=== PATIENT | female | born 1970 | race Caucasian/White ===

== ENCOUNTER 2020-01-24 22:25 | Emergency (ER) | payer BC, SELFPAY ==
--- NOTE | ~2020-01-24 | CT_ITS ---
EXAMINATION: CT foot RT wo con DATE: 01/24/2020 23:46 INDICATION: Right foot fractures with pain and swelling post trauma. TECHNIQUE: High resolution computed tomography (CT) of the right foot and ankle was performed without intravenous contrast. Additional sagittal and coronal reconstructions were performed. Automated expo sure control and iterative reconstruction technique were employed. The dose-length product was 432.84 mGy-cm. COMPARISON: None FINDINGS: Mildly comminuted fracture at the dorsal/lateral margin of the distal articular surface of the medial cuneiform with minimal displacement of at least 3 tiny fracture fragments. Small minimally displaced fracture along the plantar rim of the proximal articular surface of the first metatarsal. Minimally displaced oblique fracture across the plantar base of the second metatarsal. Minimally displaced, mil dly comminuted oblique fracture across the plantar base of the third metatarsal. Nondisplaced transve rse extra-articular fracture at the proximal metadiaphyseal region of the fourth metatarsal. No signi ficant subluxation at the tarsal metatarsal joints. No other fractures identified. Joint spaces appea r relatively preserved. Small plantar calcaneal spur. Mild soft tissue swelling about the midfoot. No ankle joint effusion. Tendons appear unremarkable. IMPRESSION: 1. Lisfranc joint injury with non to minimally displaced fracture at the base of the first-fourth met atarsals and at the dorsal/lateral distal articular surface of the medial cuneiform. Reviewed, dictated and finalized at location A. IMPRESSION: 1. Lisfranc joint injury with non to minimally displaced fracture at the base o f the first-fourth metatarsals and at the dorsal/lateral distal articular surfa ce of the medial cuneiform.
--- NOTE | ~2020-01-24 | XR_ITS ---
EXAMINATION: XR foot RT min 3V DATE: 01/24/2020 23:19 INDICATION: Right foot pain and swelling post trauma TECHNIQUE: Dorsoplantar, two oblique and lateral views of the right foot were obtained. COMPARISON: CT dated 01/24/2020 FINDINGS: Non to minimally displaced fracture at the base of the first-fourth metatarsals. Additional small min imally displaced fractures at the dorsal aspect of the distal medial cuneiform. No evident subluxatio n across the tarsal metatarsal joints. No other fractures identified. Joint spaces appear relatively preserved. Small plantar calcaneal spur. Soft tissue swelling about the midfoot. IMPRESSION: 1. Lisfranc injury with non to minimally displaced fractures at the base of the first-fourth metatars als and at the medial cuneiform. Reviewed, dictated and finalized at location A. IMPRESSION: 1. Lisfranc injury with non to minimally displaced fractures at the base of the first-fourth metatarsals and at the medial cuneiform.
[2020-01-24 22:26] VITALS: BP 100/61; PULSE 111; RESP 20; TEMP 36.3; O2SAT 100
--- NOTE | 2020-01-24 22:41 | ECG_ITS ---
Measurements Intervals [place] Rate: 85 P: 71 MN: 124 QRS: 81 QRSD: 74 T: 62 QT: 351 QTc: 419 Interpretive Statements SINUS RHYTHM NORMAL ECG Electronically Signed On 01-25-2020 7:46:54 CDT by Sumeet Arce D.O.
[2020-01-24] MEDS: MORPHINE SULFATE 4 MG/ML INJ IV PUSH (22:55)
[2020-01-24 23:00] LABS: Basophils Absolute Auto 0.1 K/mm3 (0.0-0.1); Basophils Percent Auto 0.6 % (0.2-1.2); Eosinophils Absolute Auto 0.5 K/mm3 (0-0.3); Eosinophils Percent Auto 3.6 % (0-4.4); Hemoglobin 15.8 g/dL (12.0-15.0); Immature Granulocyte Absolute 0.05 K/mm3 (0.00-0.031); Immature Granulocyte Percent A 0.4 % (0-0.5); Lymphocytes Absolute Auto 2.74 K/mm3 (0.9-3.2); Lymphocytes Percent Auto 19.4 % (18.3-44.2); Mean Corpuscular HGB Conc 32.2 g/dl (32-36); Mean Corpuscular Hemoglobin 29.3 pg (26-34); Mean Corpuscular Volume 90.7 fl (80-100); Mean Platelet Volume 8.5 fl (7.4-10.4); Monocytes Absolute Auto 0.9 K/mm3 (0.1-0.6); Monocytes Percent Auto 6.4 % (2.6-8.5); Neutrophils Absolute Auto 9.8 K/mm3 (1.3-6.7); Neutrophils Percent Auto 69.6 % (45.5-73.1); Platelet Count Result 420 k/mm3 (150-375); Red Cell Distribution Width 13.2 % (11.5-14.5); White Blood Count 14.1 K/mm3 (4.5-10.0)
[2020-01-24 23:14] LABS: Blood Urea Nitrogen 16 mg/dL (7-17); Calcium 10.3 mg/dL (8.4-10.2); Carbon Dioxide 27 mmol/L (22-30); Chloride 100 mmol/L (98-107); Estimated Glomerular Filt Rate 48; Glucose 113 mg/dL (65-105); Potassium 4.4 mmol/L (3.4-5.0); Sodium 138 mmol/L (137-145)
--- NOTE | 2020-01-24 23:25 | ED.LOWEXIN ---
HPI - Extremity Injury (Lower) General Chief Complaint: Extremity Injury, Lower <Ameya Payne MD - Last Filed: 01/24/20 23:54> Stated Complaint: broke my foot <Ameya Payne MD - Last Filed: 01/24/20 23:54> Time Seen by Provider: 01/24/20 22:26 <Ameya Payne MD - Last Filed: 01/24/20 23:54> History of Present Illness HPI Narrative: Patient is a 49-year-old female who presents ER with right foot pain. Patient reports she got lightheaded and then passed out and hit the ground. When she woke up she had terrible pain in her right foot and has pain with flexion/extension of the foot and with any type of pressure. Patient reports when she takes her Seroquel sometimes she passes out and she thinks that is what occurred. She has no nausea/vomiting/dizziness at this time. Her head does not hurt her. There is no evidence of trauma to her head. <Ameya Payne MD - Last Filed: 01/24/20 23:54> Related Data Home Medications: Home Medications Medication Instructions Recorded Confirmed Requip 11/01/19 gabapentin 11/01/19 lithium carbonate 11/01/19 omeprazole 11/01/19 quetiapine 11/01/19 ropinirole 11/01/19 <Ameya Payne MD - Last Filed: 01/24/20 23:54> Allergies/Adverse Reactions: Allergies Allergy/AdvReac Type Severity Reaction Status Date / Time Penicillins Allergy Rash Verified 01/24/20 22:29 sulfamethoxazole Allergy Vomiting Verified 01/24/20 22:29 [From Bactrim] trimethoprim [From Bactrim] Allergy Vomiting Verified 01/24/20 22:29 <Ameya Payne MD - Last Filed: 01/24/20 23:54> Review of Systems Review of Systems: All systems reviewed & are unremarkable except as noted in HPI and below <Ameya Payne MD - Last Filed: 01/24/20 23:54> Constitutional: Constitutional: Denies chills and Denies fever(s) <Ameya Payne MD - Last Filed: 01/24/20 23:54> Gastrointestinal: Gastrointestinal: Denies nausea and Denies vomiting <Ameya Payne MD - Last Filed: 01/24/20 23:54> Musculoskeletal: Comments: Right foot pain and swelling over the dorsal aspect. <Ameya Payne MD - Last Filed: 01/24/20 23:54> Neurologic: Reports syncope, Reports numbness and Denies weakness <Ameya Payne MD - Last Filed: 01/24/20 23:54> PMFSH Past Medical History Medical History: Medical History (Updated 01/25/20 @ 00:52 by Danie Maher MD) Bipolar disorder <Ameya Payne MD - Last Filed: 01/24/20 23:54> Surgical History Surgical History: Surgical History (Updated 11/01/19 @ 09:15 by Rabia Flores) H/O hernia repair <Ameya Payne MD - Last Filed: 01/24/20 23:54> Social History Social History: Social History (Updated 11/01/19 @ 09:15 by Rabia Flores) Smoking status: Smoker, status unknown Gender identity (if verbalized by the patient): Female <Ameya Payne MD - Last Filed: 01/24/20 23:54> Exam Narrative: Exam Narrative: GENERAL: Uncomfortable-appearing, well-nourished, and in no acute distress. HEAD: Normocephalic, atraumatic. ENT: Mucous membranes moist. CHEST: Clear to auscultation. No respiratory distress. HEART: Tachycardic and regular. Normal peripheral pulses. EXTREMITIES: Focused exam of the right foot shows swelling over the dorsum of the midfoot with generalized tenderness over the middle of the foot as well. There is slight slowing of capillary refill distally due to some swelling however dorsalis pedis and posterior tibial pulses are palpable. No tenderness at the ankle or proximally. Patient is able to flex the toes however full flexion is limited due to the pain in her foot. Sharp and soft touch intact. SKIN: Warm, dry, no rash. NEURO: Alert and oriented x3. <Ameya Payne MD - Last Filed: 01/24/20 23:54> Course Course Emergency Course: Discussed with Dr. Terry. He will see her in clinic this week. <Danie Maher MD - Last Filed:
[2020-01-24] MEDS: HYDROMORPHONE HCL 1 MG/ML INJ IV PUSH (23:31)
[2020-01-24 23:58] LABS: Lithium < 0.2 mmol/L (0.6-1.2)
--- NOTE | 2020-01-25 00:30 | PC.NURSE ---
Pt states shes feels much better, she understands all the pain wont go away but its better than before.
== END 2020-01-25 01:05 | disposition home or self-care (01) ==
PROVIDERS: Emergency Provider Emergency Medicine
DX: S92.311A Displaced fracture of first metatarsal bone, right foot, initial encounter for closed fracture (principal); S92.321A Displaced fracture of second metatarsal bone, right foot, initial encounter for closed fracture; S92.331A Displaced fracture of third metatarsal bone, right foot, initial encounter for closed fracture; S92.344A Nondisplaced fracture of fourth metatarsal bone, right foot, initial encounter for closed fracture; S92.221A Displaced fracture of lateral cuneiform of right foot, initial encounter for closed fracture; F31.9 Bipolar disorder, unspecified; W18.39XA Other fall on same level, initial encounter
CPT/HCPCS: 29515; 36415; 73630; 73700; 80048; 80178; 85025; 93005; 96374; 96375; 99284; J1170; J2270